=== PATIENT | male | born 1945 | race Caucasian/White ===

== ENCOUNTER 2017-11-28 05:35 | Day surgery (SDC) | payer OTHER ==
[~2017-11-28] VITALS: Ht 172.7 cm; Wt 78.9 kg
[~2017-11-28 05:35] MED LIST: ACYCLOVIR400 MG PO; ALLOPURINOL300 MG PO; CONSTULOSE10 GM/15 M PO; DULCOLAX5 MG PO; IPRATROPIUM BRO30 ML NAS; LORAZEPAM1 MG PO; OMEPRAZOLE20 MG PO; ONDANSETRON HCL8 MG PO; OXYCODON-ACETA1 EAC2 PO; PREDNISONE20 MG PO; PROVENTIL HFA6.7 GM INH; PROZAC20 MG PO; STOOL SOFTENER100 MG PO
--- NOTE | 2017-11-28 08:19 | NUR ---
11/28/17 0819 Chelly Crotez 0811-PATIENT ARRIVED TO PACU ON 6L MASK O2 SAT 99% PATIENT REACTIVE TO VOICE. LEFT CHEST INCISION CDI.
[2017-11-28] MEDS ORDERED: HYDROCODON-ACE1 EA10 PO (08:50)
[2017-11-28] MEDS ORDERED: MAPAP325 MG PO (08:51)
--- NOTE | 2017-11-28 14:33 | OR ---
[facility] [address], [place] [address] Signed DATE OF OPERATION: 11/28/2017 SURGEON: Tima Ferrer MD PREOPERATIVE DIAGNOSES: 1. Mantle cell lymphoma, in remission. 2. Dysfunctional left subclavian Port-A-Cath. POSTOPERATIVE DIAGNOSES: 1. Mantle cell lymphoma, in remission. 2. Dysfunctional left subclavian Port-A-Cath. 3. Sheared catheter at area of infraclavicular level. PROCEDURE: Explantation of left subclavian Port-A-Cath device. ANESTHESIA: Local with monitored anesthesia care, Alyssa Baig CRNA and local 10 mL of 1% lidocaine. INDICATION: This 72-year-old white man is a patient of Dr. Mcgregor and Dyan Tabares, at the [facility]. He was diagnosed by me in September of 2016 with a B-cell lymphoma (mantle cell lymphoma). A Port-A-Cath was placed on 09/27/2016 for chemotherapy. It is notable he had profound cervical mediastinal adenopathy at that time. He has had a remarkable remission with chemotherapy administered under the direction of Dr. Mcgregor. A few weeks ago, 3 separate attempts at infusional chemotherapy via the Port-A-Cath were unsuccessful. There appeared to be swelling beneath the skin. There is not thought to be a problem of thrombosis of the catheter. I learned yesterday that there was some concern that there had been shearing of the catheter. Clinical examination shows the port to be intact and the catheter to be beneath the skin easily palpable and identifiable extending to the clavicle. He is anticipated to have chemotherapy on an every 2-month basis and peripheral chemotherapy would be acceptable. Dr. Mcgregor is asked for explantation of the device at this point. The risks of Port-A-Cath explantation have been reviewed with the patient including, but Electronically Signed By: TIMA FERRER MD 11/28/17 6778 PATIENT NAME: ERWIN CHAO OPERATIVE REPORT DATE OF : 47 PHYSICIAN: TIMA FERRER MD REPORT #: [id number] REPORT IS CONFIDENTIAL AND NOT TO BE RELEASED WITHOUT AUTHORIZATION [facility] [address], [place] [address] Signed not limited to, bleeding, infection, and other unforeseen complications. He understands and wished to proceed. FINDINGS: The catheter was intact in relation to the port itself, but we sheared off in the area of the infraclavicular space. This is uncommon, but not unknown complication. No doubt accounted for its lack of effective function. A chest x-ray will be obtained to assess for the distal position of the catheter, presumably it has embolized to the right heart system, but that remains to be determined. The catheter when examined showed the area of transection to be very flat, consistent with a shearing phenomenon related to the clavicle itself. DESCRIPTION OF PROCEDURE: The patient was brought to the operating room and placed in the supine position. He was given preoperative antibiotic Ancef. The upper torso was shaved and prepared with a chlorhexidine solution and draped sterilely. He was given intravenous sedation and carefully monitored. Examination of the chest wall showed the port device in the subcutaneous space to be well positioned and the catheter emanating from it to extend to the area of infraclavicular space. Uncertain, if separation of the catheter had occurred somewhere near the junction of the port and the device. The port was gently retracted showing good continuity with the catheter that was palpable beneath the skin. A 1% lidocaine was injected over the catheter itself, a few centimeters below the clavicle itself as well as the previous incision for the port device. A transverse incision was made inferior to the clavicle and dissection carried through the subcutaneous tissue identifying the catheter itself. It was gently tented and secured, so as to avoid embolization if there was in fact separation of the catheter from the port itself. An incision was then made directly in the previous incision over the port device and dissection carried through the subcutaneous tissue. Using a #15 blade, the capsule over the port device was incised and the catheter manipulated out of the capsule in the usual way. It was withdrawn without problem and found to be intact. Although intact from the port to the catheter itself, it was clear that there had been shearing of the catheter, as the distal portion of the catheter at the level of the clavicle was completely flattened and transected. The tip of the catheter was no doubt , as had been suspected perhaps by Dr. Mcgregor. Both wounds were closed with interrupted 3-0 Vicryl and photographs taken of the port device and operative site. Steri-Strips were applied and a Mepilex silver sponge dressing and an Opsite also applied. The patient was taken to the recovery room in good condition having suffered no complication. A plan is in place to perform a portable chest x-ray to see if the tip of the catheter can be identified. Most likely, it will have embolized into the right heart system in a Electronically Signed By: TIMA FERRER MD 11/28/17 1433 PATIENT NAME: ERWIN CHAO OPERATIVE REPORT DATE OF : 47 PHYSICIAN: TIMA FERRER MD REPORT #: [id number] REPORT IS CONFIDENTIAL AND NOT TO BE RELEASED WITHOUT AUTHORIZATION [facility] [address] [place] [address] several weeks ago. Interventional Radiology will be necessary to retrieve the distal segment. No doubt. MD SWEETIE Paul/MELI /[id number] cc: MD Dyan Sanchez NP Electronically Signed By: TIMA FERRER MD 11/28/17 1433 PATIENT NAME: CHAO,ERWIN RAY OPERATIVE REPORT DATE OF : 47 PHYSICIAN: TIMA FERRER MD REPORT #: [id number] REPORT IS CONFIDENTIAL AND NOT TO BE RELEASED WITHOUT AUTHORIZATION
== END 2017-11-28 09:22 | disposition home or self-care (01) ==
LOC: DS 05:35 → OPS 05:35 → DS 06:45 → OPS 06:45
PROVIDERS: Surgery
PROC: 05PY33Z Removal of Infusion Device from Upper Vein, Percutaneous Approach (ICD-10-PCS; 2017-11-28)
PROC: 0JPT0WZ Removal of Totally Implantable Vascular Access Device from Trunk Subcutaneous Tissue and Fascia, Open Approach (ICD-10-PCS; principal; 2017-11-28 06:45)
DX: T82.594A Other mechanical complication of infusion catheter, initial encounter (principal); C83.10 Mantle cell lymphoma, unspecified site; K21.9 Gastro-esophageal reflux disease without esophagitis; G47.30 Sleep apnea, unspecified; Z79.899 Other long term (current) drug therapy; Z87.442 Personal history of urinary calculi; Z99.89 Dependence on other enabling machines and devices
CPT/HCPCS: 00532; 71045; J0690; J2250; J2405; J3010; J7120

== ENCOUNTER 2020-09-04 11:52 | Emergency (ER) | payer OTHER ==
[~2020-09-04] VITALS: Ht 172.7 cm; Wt 83.9 kg
[~2020-09-04 11:52] MED LIST changes: +ACETAMINOPHEN-1 EACH PO; +ALLOPURINOL100 MG PO; +ESCITALOPRAM OX10 MG PO; +HYDROCODON-ACE1 EA10 PO; +IMBRUVICA560 MG PO; +IMODIUM A-D2 M2 PO; +INDOMETHACIN25 MG PO; +MAGIC MOUTHWASH; +MAPAP325 MG PO; +MOTRIN IB200 MG PO; +NORVASC5 MG PO; +ZOVIRAX800 MG PO
--- OUTSIDE RECORDS SUMMARY | 2020-09-04 11:56 | XMS ---
PreManage Notification: ERWIN CHAO Security Coat Check Attendant Events No recent Security Events currently on file CRITERIA MET - [facility] - 2 Visits in 30 Days CARE PROVIDERS There are no care providers on record at this time. Evelina has no Care Guidelines for this patient. [facility] VISIT COUNT (12 MO.) 1 [facility]. Mary Luis 1 [facility] TOTAL 2 NOTE: Visits indicate total known visits. ED/UCC VISIT TRACKING (12 MO.) 09/04/2020 11:53 [facility] [place] TYPE: Emergency COMPLAINT: - WRIST INJ 08/24/2020 10:26 [facility] [place] Luis [place] TYPE: Emergency DIAGNOSES: - Wrist Pain - wrist injury - Unspecified sprain of right wrist, initial encounter INPATIENT VISIT TRACKING (12 MO.) No inpatient visits to display in this time frame [email or web address]
[2020-09-04] MEDS ORDERED: HYDROCODON-ACE1 EA10 PO (12:10)
[2020-09-04] MEDS ORDERED: PREDNISONE20 MG PO (13:31)
== END 2020-09-04 13:42 | disposition home or self-care (01) ==
LOC: ED 11:52
DX: M25.531 Pain in right wrist (principal); M10.9 Gout, unspecified; G47.30 Sleep apnea, unspecified; K21.9 Gastro-esophageal reflux disease without esophagitis; Z88.5 Allergy status to narcotic agent; Z79.899 Other long term (current) drug therapy
CPT/HCPCS: 73110; 99283-25